=== PATIENT | male | born 1950 | race Caucasian/White ===

== ENCOUNTER 2021-06-15 10:19 | Emergency (ER) | payer MEDICARE, SELFPAY ==
[~2021-06-15] VITALS: Ht 175.3 cm; Wt 88.5 kg
[2021-06-15 11:01] VITALS: BP_SYST 153
[2021-06-15] MEDS ORDERED: DIPH-TET-PERTUS Vaccine 0.5 ML VIAL (ADACEL) I.M. ONE (15:15)
[2021-06-15 16:18] LABS: BASOPHILS % (AUTO) 0.1 % (0.0-2.0); EOSINOPHILS % (AUTO) 0.1 % (0.0-4.0); HEMATOCRIT 43.1 % (36-54); HEMOGLOBIN 14.7 g/dL (14.0-18.0); LYMPHOCYTES # (AUTO) 0.4 K/uL (1.0-5.5); LYMPHOCYTES % (AUTO) 3.8 % (20.5-51.5); MEAN CORPUSCULAR HEMOGLOBIN 31 pg (27-31); MEAN CORPUSCULAR HGB CONC 34 % (32-36); MEAN CORPUSCULAR VOLUME 91 fL (79.0-98.0); MONOCYTES # (AUTO) 0.4 K/uL (0.0-1.0); MONOCYTES % (AUTO) 3.5 % (1.7-9.3); NEUTROPHILS # (AUTO) 10.1 K/uL (1.8-7.7); NEUTROPHILS % (AUTO) 92.5 % (40.0-70.0); PLATELET COUNT (AUTO) 208 K/uL (130-430); RED BLOOD CELL COUNT(AUTO) 4.75 MIL/uL (4.2-6.2); RED CELL DISTRIBUTION WIDTH 13.9 % (9.0-15.0); WHITE BLOOD COUNT (AUTO) 10.9 K/uL (4.8-10.8)
[2021-06-15 16:27] LABS: ANION GAP 9 (5-15); CHLORIDE 102 mmol/L (98-107); CREATININE 1.39 mg/dL (0.55-1.30); GLUCOSE 165 mg/dL (70-99); POTASSIUM 4.7 mmol/L (3.5-5.1); SODIUM SERUM 138 mmol/L (136-145); UREA NITROGEN, BLOOD 23 mg/dL (8-21)
[2021-06-15 16:29] LABS: GFR AFRICAN AMERICAN 65 mL/min (>90)
[2021-06-15 16:43] LABS: ALANINE AMINOTRANSFERASE 33 U/L (12-78); ALBUMIN 4.3 g/dL (3.4-4.8); AMYLASE 38 U/L (0-100); ASPARTATE AMINOTRANSFERASE 20 U/L (10-37); LIPASE 49 U/L (73-393); TOTAL BILIRUBIN 3.2 mg/dL (0.0-1.0)
[2021-06-15 16:54] LABS: C-REACTIVE PROTEIN QUANT < 0.2 mg/dL (0-0.5)
[2021-06-15] MEDS ORDERED: BACITRACIN 1 GM OINT TP ONE (17:30)
[2021-06-15] MEDS ORDERED: HYDROcodone/ACETAMIN 5-325 MG TAB (NORCO/ VICODIN) PO ONE (17:30)
[2021-06-15] MEDS ORDERED: IBUPROFEN 800 MG TABLET PO ONE (17:30)
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
--- NOTE | 2021-06-15 17:53 | NUR ---
AM DR MERCEDES AT [facility]
[2021-06-15] MEDS ORDERED: DIPH-TET Vacc 0.5 ML VIAL I.M. ONE (18:26)
--- NOTE | 2021-06-15 18:37 | NUR ---
Pt hypertensive , Dr Maddox informed no nw orders receieved. Pt reports pain at ths time.
[2021-06-15] MEDS ORDERED: HYDR-3917 PO (18:43)
[2021-06-15] MEDS ORDERED: IBUP-1969 PO (18:43)
--- NOTE | 2021-06-15 19:01 | NUR ---
Patient given written and verbal discharge instructions and verbalizes understanding. ER MD discussed with patient the results and treatment provided. Patient in stable condition. ID arm band removed. Rx of NORCO, MOTRIN given. Patient educated on pain management and to follow up with PMD. Pain Scale . Opportunity for questions provided and answered. Medication side effect fact sheet provided.
[2021-06-15 19:02] VITALS: BP_SYST 195
[2021-06-15 19:24] LABS: BILIRUBIN,URINE NEGATIVE (NEGATIVE); CLARITY/URINE CLEAR (CLEAR); COLOR,URINE YELLOW (YELLOW); GLUCOSE,URINE 1+ (NEGATIVE); KETONES,URINE 1+ (NEGATIVE); LEUKOCYTE ESTERASE ,URINE NEGATIVE (NEGATIVE); NITRITE, URINE NEGATIVE (NEGATIVE); PH,URINE 6.5 (5.0-8.0); PROTEIN URINE 1+ (NEGATIVE); UROBILINOGEN,URINE 0.2 (0.2-1.0)
[2021-06-15 19:35] LABS: BLOOD, URINE TRACE (NEGATIVE)
[2021-06-15 19:36] LABS: BACTERIA,URINE FEW /HPF (None Seen); MUCUS,URINE 1+ /LPF (None Seen); WBC,URINE 0-3 /HPF (0-3)
== END 2021-06-15 19:02 | disposition home or self-care (01) ==
LOC: SED 10:19
DX: S37.012A Minor contusion of left kidney, initial encounter (principal); S80.212A Abrasion, left knee, initial encounter; S39.91XA Unspecified injury of abdomen, initial encounter; I10 Essential (primary) hypertension; V98.8XXA Other specified transport accidents, initial encounter; Y93.55 Activity, bike riding; Y92.488 Other paved roadways as the place of occurrence of the external cause
CPT/HCPCS: 36415; 76376; 80053; 81000; 81002; 82150; 83605; 83690; 85025; 86140; 90714; 99285

== ENCOUNTER 2021-06-17 14:24 | Emergency (ER) | payer MEDICARE, SELFPAY ==
[~2021-06-17] VITALS: Ht 175.3 cm; Wt 88.5 kg
[~2021-06-17 14:24] MED LIST: HYDR-3917 PO; IBUP-1969 PO
[2021-06-17 15:54] LABS: BASOPHILS % (AUTO) 0.4 % (0.0-2.0); EOSINOPHILS % (AUTO) 0.1 % (0.0-4.0); HEMATOCRIT 40.4 % (36-54); LYMPHOCYTES # (AUTO) 0.5 K/uL (1.0-5.5); LYMPHOCYTES % (AUTO) 5.5 % (20.5-51.5); MEAN CORPUSCULAR HEMOGLOBIN 31 pg (27-31); MEAN CORPUSCULAR HGB CONC 35 % (32-36); MEAN CORPUSCULAR VOLUME 90 fL (79.0-98.0); MONOCYTES % (AUTO) 10.7 % (1.7-9.3); NEUTROPHILS # (AUTO) 8.1 K/uL (1.8-7.7); NEUTROPHILS % (AUTO) 83.3 % (40.0-70.0); PLATELET COUNT (AUTO) 191 K/uL (130-430); RED BLOOD CELL COUNT(AUTO) 4.49 MIL/uL (4.2-6.2); RED CELL DISTRIBUTION WIDTH 13.5 % (9.0-15.0); WHITE BLOOD COUNT (AUTO) 9.7 K/uL (4.8-10.8)
[2021-06-17 16:02] VITALS: BP_SYST 149
[2021-06-17 16:06] LABS: CREATININE 1.85 mg/dL (0.55-1.30); POTASSIUM 4.1 mmol/L (3.5-5.1)
[2021-06-17 16:10] LABS: ALBUMIN 3.8 g/dL (3.4-4.8); TOTAL BILIRUBIN 3.9 mg/dL (0.0-1.0)
--- NOTE | 2021-06-17 18:00 | NUR ---
PT ELOPED AFTER TRIAGE
== END 2021-06-17 18:00 | disposition left against medical advice (07) ==
LOC: SED 14:24
DX: S37.012D Minor contusion of left kidney, subsequent encounter (principal); R53.81 Other malaise; I10 Essential (primary) hypertension; V09.9XXA Pedestrian injured in unspecified transport accident, initial encounter; Y93.9 Activity, unspecified; Y92.9 Unspecified place or not applicable; Y99.9 Unspecified external cause status
CPT/HCPCS: 36415; 76376; 80053; 81002; 82150; 83605; 83690; 85025; 86140; 99284